=== PATIENT | male | born 1985 | race Native Hawaiian/Other Pacific Islander ===

== ENCOUNTER 2019-09-07 13:16 | Outpatient (CLI) | payer OTHER ==
[2019-09-07 15:37] LABS: PLATELET COUNT 278 K/uL (142-355)
== END 2019-09-07 22:32 | disposition home or self-care (01) ==
LOC: LABW 13:16
PROVIDERS: Internal Medicine
DX: E11.9 Type 2 diabetes mellitus without complications (principal)
CPT/HCPCS: 36415; 80053; 80061; 81000; 82043; 82570; 83036; 83519; 84443; 85027; 86337